=== PATIENT | female | born 1945 | race Caucasian/White ===

== ENCOUNTER 2020-05-09 08:11 | Outpatient (CLI) | payer MEDICARE ==
[~2020-05-09] VITALS: Ht 152.4 cm; Wt 63.0 kg
[2020-05-09] VITALS (10 sets, daily range): BP systolic 74–103; BP diastolic 50–54
[~2020-05-09 08:11] MED LIST: ALBU8.5H8 INH; ASPI-611 PO; CALC-774 PO; CYCL-1 PO; DENO60DI SUBCUT; DILT240C88 PO; HYDR12.55 PO; LISI-600 PO; LYSI500T11 PO; MULT-1141 PO; MV-M1TAB32 PO; PRAV40TA3 PO; PSEU-259 CORPAK
[2020-05-09] MEDS ORDERED: normal saline 500ml IV soln 500 ML IV ONE (09:30)
[2020-05-09] MEDS ORDERED: regadenoson 0.4mg/5ml syringe IV ONE (09:30)
[2020-05-09] MEDS ORDERED: nitroGLYCERIN 0.4mg SUBLingual tab SL PRN (09:30)
[2020-05-09] MEDS ORDERED: aminophylline 250mg/10ml inj. IV PRN (09:30)
== END 2020-05-09 23:59 | disposition home or self-care (01) ==
LOC: RAD 08:11
PROVIDERS: ATTEND Internal Medicine Cardiovascular Disease
DX: R06.02 Shortness of breath (principal)
CPT/HCPCS: 78452; 93017; A9500; J0280; J2785; J7040

== ENCOUNTER 2022-08-05 11:18 | Emergency (ER) | payer MEDICARE ==
[~2022-08-05] VITALS: Ht 152.4 cm; Wt 72.7 kg
[~2022-08-05 11:18] MED LIST changes: +ALBU8.5H17 INH; -ALBU8.5H8 INH; -LISI-600 PO; +LISI20TA28 PO; +barium sulfate 450ml oral suspension ONE
[2022-08-05] MEDS ORDERED: ringers solution, lactated 1000ml IV soln IV ONE (14:15)
[2022-08-05] MEDS ORDERED: iohexol 300mg/ml 100ml inj. ONE ×2 (14:30→15:57)
[2022-08-05 15:38] LABS: BASOPHILS # (AUTO) 0.1 X10'3 (0-0.2); BASOPHILS % (AUTO) 0.6 % (0-1); EOSINOPHILS # (AUTO) 0.2 X10'3 (0-0.9); EOSINOPHILS % (AUTO) 1.3 % (0-6); HEMATOCRIT 45.5 % (35.0-45.0); LYMPHOCYTES # (AUTO) 2.4 X10'3 (1.1-4.8); LYMPHOCYTES % (AUTO) 18.4 % (21-51); MEAN CORPUSCULAR HEMOGLOBIN 32.1 PG (27.0-31.0); MEAN CORPUSCULAR VOLUME 97.4 FL (78-98); MEAN PLATELET VOLUME 9.1 FL (7.4-10.4); MONOCYTES # (AUTO) 0.6 X10'3 (0-0.9); MONOCYTES % (AUTO) 4.4 % (2-12); NEUTROPHILS # (AUTO) 9.9 X10'3 (1.8-7.7); NEUTROPHILS % (AUTO) 75.3 % (42-75); PLATELET COUNT 239 X10'3 (140-440); RED BLOOD COUNT 4.68 X10'6 (4.20-5.60); RED CELL DISTRIBUTION WIDTH 12.8 % (11.5-14.5); WHITE BLOOD COUNT 13.1 X10'3 (4.5-11.0)
[2022-08-05 15:50] LABS: ALANINE AMINOTRANSFERASE 15 U/L (12-78); ALBUMIN 3.8 G/DL (3.4-5.0); ALBUMIN/GLOBULIN RATIO 0.9 (1.1-1.5); ALKALINE PHOSPHATASE 77 IU/L (46-116); ANION GAP 11 (8-16); ASPARTATE AMINO TRANSFERASE 32 U/L (10-37); BILIRUBIN,TOTAL 0.9 MG/DL (0.1-1.0); BLOOD UREA NITROGEN 12 MG/DL (7-18); BUN/CREATININE RATIO 18.2 (6.6-38.0); CALCIUM 9.5 MG/DL (8.5-10.1); CHLORIDE 107 MMOL/L (99-107); CREATININE 0.66 MG/DL (0.40-0.90); GLUCOSE 92 MG/DL (70-104); POTASSIUM 3.1 MMOL/L (3.5-5.1); SODIUM 145 MMOL/L (135-145); TOTAL CARBON DIOXIDE 27.3 MMOL/L (24-32); TOTAL PROTEIN 8.1 G/DL (6.4-8.2); eGFR 87 ML/MIN
[2022-08-05] MEDS ORDERED: sucralfate 1 gm tablet PO ONE (18:35)
[2022-08-05] MEDS ORDERED: LIDOcaine Viscous 15ml cup MM ONE (18:35)
[2022-08-05 19:31] VITALS: BP 138/86
== END 2022-08-05 19:32 | disposition home or self-care (01) ==
LOC: ER 11:18
DX: R13.10 Dysphagia, unspecified (principal); Z20.822 Contact with and (suspected) exposure to COVID-19; J06.9 Acute upper respiratory infection, unspecified; G43.909 Migraine, unspecified, not intractable, without status migrainosus; I10 Essential (primary) hypertension; Z88.8 Allergy status to other drugs, medicaments and biological substances
CPT/HCPCS: 36415; 70491; 74220; 80053; 85025; 87081; 87811; 87880; 99285; J3490; J7120; Q9967

== ENCOUNTER 2023-02-28 05:16 | Day surgery (SDC) | payer MEDICARE ==
[2023-02-20 11:21] LABS: BASOPHILS % (AUTO) 0.3 % (0-1); EOSINOPHILS # (AUTO) 0.1 X10'3 (0-0.9); EOSINOPHILS % (AUTO) 0.4 % (0-6); HEMATOCRIT 42.5 % (35.0-45.0); HEMOGLOBIN 14.1 g/dl (12.0-16.0); LYMPHOCYTES # (AUTO) 1.5 X10'3 (1.1-4.8); LYMPHOCYTES % (AUTO) 10.7 % (21-51); MEAN CORPUSCULAR HGB CONC 33.2 g/dL (33.0-36.5); MEAN CORPUSCULAR VOLUME 96.3 FL (78-98); MEAN PLATELET VOLUME 8.4 FL (7.4-10.4); MONOCYTES # (AUTO) 0.7 X10'3 (0-0.9); NEUTROPHILS # (AUTO) 12.1 X10'3 (1.8-7.7); NEUTROPHILS % (AUTO) 83.6 % (42-75); PLATELET COUNT 260 X10'3 (140-440); RED BLOOD COUNT 4.41 X10'6 (4.20-5.60); RED CELL DISTRIBUTION WIDTH 12.9 % (11.5-14.5); WHITE BLOOD COUNT 14.5 X10'3 (4.5-11.0)
[2023-02-20 11:32] LABS: ALANINE AMINOTRANSFERASE 12 U/L (12-78); ALBUMIN 2.8 G/DL (3.4-5.0); ALBUMIN/GLOBULIN RATIO 0.8 (1.1-1.5); ALKALINE PHOSPHATASE 50 IU/L (46-116); ANION GAP 3 (8-16); ASPARTATE AMINO TRANSFERASE 18 U/L (10-37); BILIRUBIN,TOTAL 0.2 MG/DL (0.1-1.0); BLOOD UREA NITROGEN 8 MG/DL (7-18); BUN/CREATININE RATIO 10.5 (10.0-20.0); CALCIUM 9.7 MG/DL (8.5-10.1); CHLORIDE 102 MMOL/L (99-107); CREATININE 0.76 MG/DL (0.40-0.90); GLUCOSE 106 MG/DL (70-104); SODIUM 140 MMOL/L (135-145); TOTAL CARBON DIOXIDE 35.5 MMOL/L (24-32); TOTAL PROTEIN 6.5 G/DL (6.4-8.2); eGFR 73 ML/MIN
[2023-02-20 11:41] LABS: POTASSIUM 2.6 MMOL/L (3.5-5.1)
[~2023-02-28] VITALS: Ht 154.9 cm; Wt 66.5 kg
[2023-02-28] VITALS (16 sets, daily range): BP systolic 110–133; BP diastolic 62–79; PULSE 73–91; RESP 14–30; TEMP 98.2; O2SAT 90–100
[~2023-02-28 05:16] MED LIST changes: -CYCL-1 PO; -DENO60DI SUBCUT; -HYDR12.55 PO; +LISI1TAB51 PO; -LISI20TA28 PO; -LYSI500T11 PO; -MV-M1TAB32 PO; +PANT-47 PO; -PSEU-259 CORPAK; +UMEC1DIS INH; -barium sulfate 450ml oral suspension ONE; +ringers solution, lacted 1,000 ML IV SCH
[2023-02-28] MEDS ORDERED: famotidine 20mg tablet PO ONE (05:30)
[2023-02-28 06:53] LABS: ISTAT ANION GAP 11 (8-12); ISTAT BUN 7 mg/dL (7-18); ISTAT CL 104 mmol/L (99-107); ISTAT CREATININE 0.6 mg/dL (0.6-1.1); ISTAT GLUCOSE 101 mg/dL (70-104); ISTAT HGB 14.6 g/dl (12.0-16.0); ISTAT Hct 43 %PCV (35-45); ISTAT IONIZED CALCIUM 1.28 mmol/L (1.03-1.32); ISTAT K 3.4 mmol/L (3.5-5.1); ISTAT NA 140 mmol/L (135-145); ISTAT TOTAL CO2 25 mmol/L (24-32); ISTAT eGFR > 90 ML/MIN; POC BUN/CREATININE RATIO 11.7 (6.6-38.0)
[2023-02-28] MEDS ORDERED: ipratropium/albuterol 3ml nebule NEB PRN (07:10)
[2023-02-28] MEDS ORDERED: LIDOCAINE 4% (40MG/ML) topical solution 50ml **BRONCH ONLY ONE (07:23)
[2023-02-28] MEDS ORDERED: epiNEPHrine 1 MG/ML 1 ml ampule **BRONCH ONLY ONE (07:23)
[2023-02-28] MEDS ORDERED: fentaNYL/PF 50MCG/1 ML 2ML syringe ONE (07:26)
[2023-02-28] MEDS ORDERED: propofol inj 20 ML IV ONE (07:30)
[2023-02-28] MEDS ORDERED: LIDOcaine 2% (20mg/ml) 5ml vial ONE (07:30)
[2023-02-28] MEDS ORDERED: rocuronium 10mg/ml inj IV ONE (07:30)
[2023-02-28] MEDS ORDERED: sevoflurane 250ml liquid IH ONE (07:55)
[2023-02-28] MEDS ORDERED: sugammadex 200mg/2ml injection IV ONE (08:44)
--- NOTE | 2023-02-28 09:15 | NUR ---
Received from OR via Consult A [facility]to[facility] to rr [facility], accompanied by Anesthesiologist DR DENTON and report given by Anesthesiolgist. PT PRESENTS WITH PIV 20G RIGHT HAND, LR RUNNING AT 50MLS/HR, SPO2 100% MASK 10L, PT IS AWAKE, VSS. Addendum: 02/28/23 at 0932 by Jerilyn Byrne RN, RN Amended: Links added.
[2023-02-28] MEDS ORDERED: ondansetron/PF 4mg/2ml inj ONE (09:40)
[2023-02-28] MEDS ORDERED: dexamethasone sod phosphate 4mg/ml inj. ONE (09:40)
[2023-02-28] MEDS ORDERED: phenylephrine 10mg/ml inj. -priapism dosing ONE (09:40)
--- NOTE | 2023-02-28 11:05 | NUR ---
PT HAS MET D/C CRITERIA. IV D/C'Tee SCHMITTS. I HAVE REVIEWED D/C INSTRUCTIONS WITH PATIENT AND PT'S DAUGHTER, SHE HAS VERBALIZED UNDERSTANDING OF INSTRUCTIONS. PATIENT HAS BEEN SENT HOME WITH ALL BELONGINGS, GLASSES OXYGEN MACHINE AND TUBING WITH ALL OF PT CLOTHES. PATIENT TAKEN OUT IN A WHEELCHAIR TO PRIVATE VEHICLE WHERE DAUGHTER DROVE PATIENT HOME. PATIENT D/C HOME WITH ALL BELONGINGS Addendum: 02/28/23 at 1140 by Jerilyn Byrne RN, RN Amended: Links added.
== END 2023-02-28 11:05 | disposition home or self-care (01) ==
LOC: PAS 05:16
PROVIDERS: ATTEND Internal Medicine Critical Care Medicine
DX: R91.8 Other nonspecific abnormal finding of lung field (principal); C34.2 Malignant neoplasm of middle lobe, bronchus or lung; J43.9 Emphysema, unspecified; I10 Essential (primary) hypertension; E78.5 Hyperlipidemia, unspecified; M81.0 Age-related osteoporosis without current pathological fracture; I27.81 Cor pulmonale (chronic); K21.9 Gastro-esophageal reflux disease without esophagitis; G44.009 Cluster headache syndrome, unspecified, not intractable; Z79.899 Other long term (current) drug therapy; Z79.82 Long term (current) use of aspirin; Z87.01 Personal history of pneumonia (recurrent); Z98.890 Other specified postprocedural states; Z90.49 Acquired absence of other specified parts of digestive tract; Z72.89 Other problems related to lifestyle; Z87.891 Personal history of nicotine dependence; Z88.8 Allergy status to other drugs, medicaments and biological substances; Z82.3 Family history of stroke
CPT/HCPCS: 31623; 31624; 31629; 31653; 36415; 71045; 71250; 80047; 80053; 82948; 85025; 87070; 93005; 94640; 94760; J1100; J2370; J2405; J2704; J3010; J3490; J7120; Z7506; Z7508; Z7512; 31622; 31625; 31627; 31628; 31654; A4615; A4618; J0171